=== PATIENT | male | born 1940 | race Caucasian/White ===

== ENCOUNTER 2017-10-01 16:07 | Emergency (ER) | payer MEDICARE ==
[~2017-10-01] VITALS: Ht 165.1 cm; Wt 82.0 kg
[~2017-10-01 16:07] MED LIST: ACET325 PO; ATOR10TA PO; B COTAB7 PO; CHOL100010 PO; COEN400C PO; FISH500C PO; GABA300C3 PO; GARC500T PO; HAWT150C PO; LOSA25TA31 PO; MAGN500T4 PO; MOTR200T PO; PRIL20CA PO; PROBCAP4 PO; SERAPEPTASE PO; VITA500T10 PO; [UNRECOGNIZED DRUG - OTHER] PO
[2017-10-01 16:10] VITALS: BP 163/78; PULSE 75; RESP 16; TEMP 97.7; O2SAT 96
--- NOTE | 2017-10-01 16:52 | PD ---
HPI . Leg pain Chief Complaint: Pain: Acute or Chronic Time Seen by Provider: 16:31 Travel History International Travel<30 days: No Contact w/Intl Traveler<30days: No Traveled to known affect area: No History of Present Illness HPI Patient presents with chief complaint of left leg pain. Onset was September 25. Pain has been continuous since that time. Pain is exacerbated by standing and by sitting. Pain has been relieved this afternoon by Tylenol. Pain is rated 8/10. Patient reports the onset of left leg pain following a plane flight. He denies chest pain or shortness of breath. He reports the onset of cold symptoms today. PFSH Past Medical History Arthritis: Yes Cancer: Yes Cardiovascular Problems: Yes (HTN) High Cholesterol: Yes Diminished Hearing: Yes (bilateral) Diverticulitis: Yes Hypertension: Yes Immunizations Current: Yes Past Surgical History Abdominal Surgery: Yes (HERNIORRHAPHY) Genitourinary Surgery: Yes (PROSTATECTOMY) Pacemaker: No Tonsillectomy: Yes Social History Alcohol Use: Yes (FEW DRINKS A WEEK) Tobacco Use: No Substance Use: No Allergies-Medications (Allergen,Severity, Reaction): Coded Allergies: simvastatin (Unverified Allergy, Severe, KNEE JOINT PAIN, 10/01/17) Iodinated Contrast- Oral and IV Dye (Verified Allergy, Mild, ITCHING, ) Reported Meds & Prescriptions Reported Meds & Active Scripts Active Reported Gabapentin 300 Mg Cap 300 Mg PO BID Pravastatin 10 Mg Tab 10 Mg PO DAILY Losartan (Losartan Potassium) 25 Mg Tab 25 Mg PO DAILY Meloxicam 15 Mg Tab 15 Mg PO DAILY Review of Systems Except as stated in HPI: all other systems reviewed are Neg General / Constitutional: Positive: Fever HENT: Positive: Rhinorrhea, Congestion Musculoskeletal: Positive: Pain Physical Exam Narrative GENERAL: Awake and alert and in no acute distress. SKIN: Warm and dry. There is no discoloration of his left lower extremity. HEAD: Normocephalic/atraumatic. EYES: Pupils are equal. Extraocular movements are intact. NECK: Normal range of motion. CARDIOVASCULAR: Regular rate and rhythm. RESPIRATORY: Nonlabored respirations. MUSCULOSKELETAL: Atraumatic. Straight leg raise is negative. Negative Homans sign. Thigh and calf are nontender to palpation. NEUROLOGICAL: Nonfocal. PSYCHIATRIC: Appropriate mood and affect. Data Data Last Documented VS Vital Signs Date Time Temp Pulse Resp B/P (MAP) Pulse Ox O2 Delivery O2 Flow Rate FiO2 10/01/17 16:10 97.7 75 16 163/78 (106) 96 Orders Orders Us Leg Venous Doppler (10/01/17 16:31) MDM Medical Decision Making Medical Screen Exam Complete: Yes Emergency Medical Condition: Yes Differential Diagnosis Differential diagnosis of leg pain includes but is not limited to lumbar radiculopathy, arthritis, myalgias, DVT, ruptured Cuevas's cyst. Narrative Course Patient presents with left leg pain. He has been on a recent flight. He called his doctor today about a cold and mentioned the leg pain. He was instructed to come here for evaluation of possible DVT. Ultrasound is pending. Last Impressions Lower Extremity Ultrasound 10/01/17 1631 Signed Impressions: Service Date/Time: Sunday, October 01, 2017 17:11 - CONCLUSION: Normal examination. Conrad Gar MD Diagnosis Primary Impression: Left leg pain Additional Impression: Upper respiratory infection Qualified Codes: J06.9 - Acute upper respiratory infection, unspecified; B97.89 - Other viral agents as the cause of diseases classified elsewhere Patient Instructions: General Instructions, Upper Respiratory Infection (DC) Additional Instructions: I recommend the use of a Neti Pot. You may use a nasal spray such as Afrin for up to 3 days as needed for nasal congestion. You may take an sqlb-gaf-ufaagyi antihistamine such as Zyrtec, Stephanie or Claritin as needed for runny secretions. You may take pseudoephedrine as needed for congestion. You will need to sign for this at the pharmacy. You may take plain Mucinex, 1200 mg twice a day as needed for thick secretions. You may take a cough syrup such as Delsym as needed for cough. Motrin as needed for fever and body aches. Throat lozenges/sprays as needed for sore throat. Warm salt water gargles for sore throat. Hot tea with lemon and honey also helps soothe a sore throat. Tylenol and heat for your leg pain. Med/Other Pt SpecificInfo: Prescription(s) given Disposition: 01 DISCHARGE HOME Condition: Stable Genet Hedrick MD Oct 01, 2017 16:52
[2017-10-01] MEDS ORDERED: GABA300C5 PO (16:55)
[2017-10-01] MEDS ORDERED: LOSA25TA PO (16:55)
[2017-10-01] MEDS ORDERED: PRAV10TA PO (16:55)
[2017-10-01] MEDS ORDERED: MELO15TA20 PO (16:55)
--- NOTE | 2017-10-01 17:37 | RADRPT ---
EXAM DATE/TIME: 10/01/2017 17:11 [facility] COMPARISON: No previous studies available for comparison. INDICATIONS : Left leg pain. MEDICAL HISTORY : Hypercholesterolemia. Hypertension. Diverticulitis. Arthritis. SURGICAL HISTORY : Tonsillectomy. Prostatectomy. ENCOUNTER: Initial ACUITY: 3 weeks PAIN SCORE: 4/10 LOCATION: Left leg. TECHNIQUE: Venous ultrasound of the leg was performed from the inguinal ligament to the proximal calf. Real-nolan e, color Doppler and spectral tracing, compression and augmentation techniques were used. FINDINGS: There is normal compressibility of the deep venous system from the inguinal region to the proximal ca lf. No echogenic clot is seen in the lumen of the common femoral, femoral, popliteal, and posterior tibial veins. There is a normal response of the venous system to proximal and distal augmentation an d respiration. CONCLUSION: Normal examination. Conrad Gar MD on October 01, 2017 at 17:34 Board Certified Radiologist. This report was verified electronically.
[2017-10-01 18:30] VITALS: BP 174/80; PULSE 84; RESP 16; O2SAT 98
== END 2017-10-01 19:07 | disposition home or self-care (01) ==
LOC: PHED 16:07
DX: M79.605 Pain in left leg (principal); I10 Essential (primary) hypertension; J06.9 Acute upper respiratory infection, unspecified
CPT/HCPCS: 93971